=== PATIENT | female | born 1975 | race Hispanic/Latino ===

== ENCOUNTER 2017-10-21 20:25 | Emergency (ER) | payer MEDICAID, OTHER ==
[2017-10-21] MEDS ORDERED: IPRATROPIUM/ALBUTEROL SULFATE 3 ML SOLUTION IH ONE (22:06)
[2017-10-21] MEDS ORDERED: DEXAMETHASONE SOD PHOSPHATE 10MG/ML 1ML VIAL ONE (22:19)
[2017-10-21] MEDS ORDERED: KETOROLAC TROMETHAMINE 60 MG/2 ML VIAL ONE (22:19)
== END 2017-10-21 23:27 | disposition home or self-care (01) ==
LOC: EDH 20:25
DX: J20.9 Acute bronchitis, unspecified (principal); R50.9 Fever, unspecified; H92.09 Otalgia, unspecified ear
CPT/HCPCS: 94640; 96372 ×2; 99284; J1100; J1885

== ENCOUNTER 2018-07-24 09:15 | Emergency (ER) | payer SELFPAY | END 2018-07-24 10:08 | disposition home or self-care (01) | LOC: EDH 09:15 | DX: R05 Cough (principal) | CPT/HCPCS: 99281 ==